=== PATIENT | male | born 1975 | race Caucasian/White ===

== ENCOUNTER → 2019-11-13 | Outpatient (CLI) | payer BC ==
--- NOTE | 2019-11-13 19:56 | CONS ---
CONSULTATION DATE OF SERVICE: 11/13/2019 This patient is a 44-year-old gentleman who has been evaluated in the sleep center for possible obstructive sleep apnea-hypopnea syndrome. HISTORY OF PRESENT ILLNESS/SLEEP-WAKE EVALUATION: Patient's usual sleep schedule is from 11 p.m. until 5 a.m. on working days and about the same schedule on weekends. No problems with falling asleep. During sleep he snores, according to his , and he wakes up once with nocturia. No history of hypnagogic hallucinations, sleep paralysis or cataplexy. Usually he does not take any naps during the day. [place] Sleepiness Scale is 8. PAST MEDICAL HISTORY: Negative. SOCIAL HISTORY: Positive for smoking about half pack a day for 25 years. The patient continues to smoke. Alcohol consumption rarely. FAMILY HISTORY: Hypertension, heart problems, snoring. REVIEW OF SYSTEMS: Sometimes awakenings from sleep. Snoring. PHYSICAL EXAMINATION: GENERAL: A pleasant gentleman without distress. VITAL SIGNS: BP 154/99, HR 88, RR 15, height 5 feet 8 inches, weight 262 pounds. Body mass index 39.8. Temperature 98.2, oxygen saturation at room air 95%. HEENT: PERRLA, EOMI. Evaluation of oropharynx showed tongue protrudes midline. Extremely low position of soft palate. Mallampati IV. Some restriction of nasal breathing. Nose slightly asymmetric. NECK: Supple. No JVD. Thyroid is not palpable. Wide neck; 18 inches in circumference. LUNGS: Clear to percussion and to auscultation. Good air exchange. No wheezing or rhonchi. HEART: S1, S2 regular. No murmurs, gallops or rubs. ABDOMEN: Slightly obese. EXTREMITIES: Very minimal, up to 1+ ankle edema. [employer] SHAPE [employer]: Awake, alert, and oriented X3. Cranial nerves 2 to 7 intact. There is no fasciculation or atrophy. noted. No focal deficits observed. IMPRESSION: 1. Snoring, extremely low position of soft palate, Mallampati IV, wide neck, 18 inches in circumference; obstructive sleep apnea-hypopnea syndrome. 2. Obesity; body mass index 39.8. 3. Hypertension in the office. 4. Restriction of nasal breathing; possible nasal septum deviation. 5. History of nasal trauma as a teenager. PLAN: 1. Home sleep apnea test for evaluation of patient's breathing during sleep. 2. CPAP/BiPAP titration if sleep study confirms obstructive sleep apnea-hypopnea syndrome. 3. Preferable position during sleep on the side. 4. No driving if patient feels any sleepiness. 5. I will see patient for follow up visit to explain results of testing and following plan. Thank you very much for referring this patient for consultation. Sincerely, Swapnil Williamson MD, PhD, FAASM Diplomat of [employer] Material Control Analyst of [facility] [place] MMODL / IJN: [id number] /
== END | disposition home or self-care (01) ==
LOC: SLEEP 13:45
PROVIDERS: ATTEND Internal Medicine
DX: G47.33 Obstructive sleep apnea (adult) (pediatric) (principal); E66.9 Obesity, unspecified; Z68.39 Body mass index [BMI] 39.0-39.9, adult; Z87.828 Personal history of other (healed) physical injury and trauma; I10 Essential (primary) hypertension; F17.210 Nicotine dependence, cigarettes, uncomplicated
CPT/HCPCS: 99211